=== PATIENT | male | born 1970 | race Two or more races ===

== ENCOUNTER 2024-11-12 03:55 | Day surgery (SDC) | payer OTHER ==
[2024-10-24 13:50] VITALS: BMI 32.3
[2024-11-12] MEDS ORDERED: MIDAZOLAM HCL 2 MG/2 ML SINGLE DOSE VIAL ONE (12:06)
[2024-11-12 12:59] VITALS: RESP 18
[2024-11-12 14:37] VITALS: PULSE 61
[2024-11-12 14:39] VITALS: BP 111/80; TEMP 97.8
== END 2024-11-12 14:00 | disposition home or self-care (01) ==
LOC: JASU-SURG 03:55
PROVIDERS: ATTEND Urology
PROC: 0TF3XZZ Fragmentation in Right Kidney Pelvis, External Approach (ICD-10-PCS; principal; 2024-11-12 11:45)
DX: N20.0 Calculus of kidney (principal)